=== PATIENT | female | born 1950 | race Hispanic/Latino ===

== ENCOUNTER 2016-09-13 11:38 | Inpatient (IN) | payer MEDICARE, OTHER ==
--- NOTE | 2016-09-13 12:19 | ED PDOC ---
Arrival/HPI - General Chief Complaint: Altered Mental Status Time Seen by Provider: 09/13/16 12:03 Historian: Patient, Family - History of Present Illness Narrative History of Present Illness (Text): 09/13/16 12:32 Patient is a 66 yo female past medical history of diabetes, past medical history of bladder and squamous cell cancer, presents to ED after family found her this morning to be confused and altered. As per daughter, when she went to check on her prior to arrival she was not responding and very confused. Reportedly she had been in her normal state yesterday aside from "being a little weak in the morning". No history of fevers, chest pain or shortness of breath. She has some chronic hip pain where she reportedly has metastatic disease. She is uncertain whether she took her insulin this morning or whether she ate today. Reportedly, patient was found with low blood sugar this AM and dextrose was given with improvement in symptoms. Time/Duration: Prior to Arrival Symptom Onset: Gradual Past Medical History - Infectious Disease Hx of Infectious Diseases: None - Reproductive Menopause: Yes - Cardiac Hx Pacemaker: No - Pulmonary Hx Respiratory Disorders: Yes - Neurological Hx Paralysis: No - HEENT Hx HEENT Disorder: No - Renal Hx Renal Disorder: No - Endocrine/Metabolic Hx Endocrine Disorders: Yes Hx Diabetes Mellitus Type 2: Yes - Hematological/Oncological Hx Blood Transfusions: No - Integumentary Hx Dermatological Disorder: No - Musculoskeletal/Rheumatological Hx Musculoskeletal Disorders: Yes - Gastrointestinal Hx Gastrointestinal Disorders: No - Genitourinary/Gynecological Hx Genitourinary Disorders: Yes Other/Comment: bladder cancer on chemo goes to [place] - Psychiatric Hx Substance Use: No - Anesthesia Hx Anesthesia Reactions: Yes (SEVERE NAUSEA/VOMITING) Hx Malignant Hyperthermia: No - Suicidal Assessment Feels Threatened In Home Enviroment: No Family/Social History Family/Social History: Unknown Family HX Smoking Status: Never Smoked Hx Alcohol Use: No Hx Substance Use: No Allergies/Home Meds Allergies/Adverse Reactions: Allergies No Known Allergies Allergy (Verified 02/23/15 15:55) Home Medications: Home Meds Medication Instructions Recorded Confirmed Cholecalciferol (Vitamin D3) 1,000 iu PO DAILY 02/21/15 09/13/16 [Vitamin D] Gabapentin [Neurontin] 400 mg PO TID 02/21/15 09/13/16 Multivit,Calc,Mins/Iron/Folic 1 tab PO DAILY 02/21/15 09/13/16 [One-A-Day Women's] Aspirin [Ecotrin] 81 mg PO DAILY 05/15/16 09/13/16 Cyanocobalamin [Vitamin B12 100 100 mcg PO DAILY 05/15/16 09/13/16 mcg Tab] Enoxaparin [Lovenox] 60 mg SQ DAILY 05/15/16 09/13/16 Lidocaine 5% [Lidocaine] 1 patch TP 2XW 05/15/16 09/13/16 fentaNYL 12 mcg/hr [Duragesic 1 patch TD Q72H 05/15/16 09/13/16 Patch 12 mcg/hr] oxyCODONE [oxyCODONE Immediate 5 mg PO TID 05/15/16 09/13/16 Release Tab] Insulin Aspart, Recombinant 25 unit SC ACBD 05/16/16 09/13/16 [Novolog] Ondansetron HCl [Zofran] 8 mg PO DAILY 09/13/16 09/13/16 Pantoprazole [Protonix EC Tab] 20 mg PO DAILY 09/13/16 09/13/16 Pravastatin Sodium [Pravachol] 10 mg PO DAILY 09/13/16 09/13/16 Review of Systems - Review of Systems Constitutional: Fatigue. absent: Fevers Eyes: absent: Vision Changes ENT: absent: Hearing Changes Respiratory: absent: SOB Cardiovascular: absent: Chest Pain Gastrointestinal: absent: Abdominal Pain Genitourinary Female: Urine Output Changes Musculoskeletal: Arthralgias Skin: absent: Rash Neurological: absent: Headache, Dizziness Psychiatric: absent: Depression Physical Exam Vital Signs Reviewed: Yes Vital Signs Temp Pulse Resp BP Pulse Ox 09/13/16 16:30 100 F H 97 H 13 147/76 98 09/13/16 16:25 97 H 16 161/71 H 98 09/13/16 11:45 98 F 93 H 16 164/57 H 100 Temperature: Afebrile Appearance: Positive for: Uncomfortable Pain Distress: Moderate Mental Status: Positive for: Alert and Oriented X 3 - Systems Exam Head: Present: Atraumatic Pupils: Present: PERRL Mouth: Present: Moist Mucous Membranes Nose (Internal): Present: Normal Inspection Neck: Present: Normal Range of Motion. No: Meningeal Signs Respiratory/Chest: Present: Clear to Auscultation Cardiovascular: Present: Regular Rate and Rhythm, Murmurs Abdomen: Present: Ostomy Tubes Back: Present: Paraspinal Tenderness Upper Extremity: No: Cyanosis Lower Extremity: Present: Neurovascularly Intact, Other (tenderness to left hip worse with ROM, intact distal pulses). No: Edema Neurological: Present: Motor Func Grossly Intact, Normal Sensory Function Skin: Present: Pale Psychiatric: Present: Alert Medical Decision Making ED Course and Treatment: Patient's history reviewed with daughters at bedside. Patient reportedly was found to have low blood sugar prior to arrival after being found confused and altered by family member earlier this AM, who called her daughter, who states that she went to see mother and she was very confused approximately 1100 am. Reportedly she had episode but not as severe yesterday morning but she felt better "after eating and taking her insulin". Daughter states that throughout the day yesterday "she was fine". Patient reportedly had immediate improvement in mental status after receiving D50. On my initial examination she is awake, alert, no slurred speech, no confusion. Based on immediate response to D50 after reported hypoglycemia, patient's symptoms I feel were due to hypoglyecemic episode, less likely tia/cva as immediate response to D50 and intact serial neuro exams. She has a severe pain to her hip that she states she had for several months after recent diagnosis of "metastatic disease to her bone". She states this pain is not changed in character. She requests to take her own pain medication. Patient states that she does not want iv pain meds intially. She has no relief of pain after taking her pain medication. With daughter's present, I discussed with her risks/side effects of Morphine, she is agreeable to Morphine 2 mg iv dose, which she tolerated with some improvement in her pain. She has no abdominal pain with serial exams. Ostomy without bloody drainage. Chest X-ray Retail Service Specialist : James Nam MD Report Date : 09/13/2016 12:28:24 IMPRESSION: No infiltrate. Possible right pulmonary nodule. Consider further nonemergent CT examination of the chest. No respiratory distress noted. UTI noted, patient with no upper back pain or cva tenderness, afebrile. UTI reviewed with patient, will initiate IV antibiotics. Patient reportedly had blood transfusion earlier this week. Hgb reviewed with family, this reportedly has been her baseline. She is not hypotensive or tachycardic in ED. Labs and imaging studies reviewed with patient. She described an episode yesterday where she felt dizzy, weak, "like she might pass out" but resolved after eating and insulin. She will be admitted for further evaluation of hypoglycemic episodes as well as serial neuro exams, monitoring of her symptoms. Hip pain appears chronic and palpable. If persistent recommend further evaluation and reassessment, thus admission. Case d/w PMD Dr. Yasmine Johnson. - Lab Interpretations Lab Results: 09/13/16 12:55 09/13/16 12:55 Lab Results 09/13/16 15:37: POC Glucose (mg/dL) 248 H 09/13/16 12:55: Sodium 133, Potassium 4.3, Chloride 99, Carbon Dioxide 28, Anion Gap 10, BUN 18, Creatinine 0.9, Est GFR ( Amer) > 60, Est GFR (Non- Af Amer) > 60, Random Glucose 101, Calcium 9.4, Total Bilirubin 0.5, AST 17, ALT 30, Alkaline Phosphatase 73, Lactate Dehydrogenase 452, Total Creatine Kinase < 20 L, Troponin I < 0.01, Total Protein 6.1, Albumin 3.3, Globulin 2.8, Albumin/Globulin Ratio 1.2 09/13/16 12:55: Urine Color Yellow, Urine Appearance Cloudy, Urine pH 6.5, Ur Specific [place] 1.020, Urine Protein 30 H, Urine Glucose (UA) Negative, Urine Ketones Negative, Urine Blood Large H, Urine Nitrate Positive H, Urine Bilirubin Negative, Urine Urobilinogen 0.2, Ur Leukocyte Esterase Large H, Urine RBC 1 - 3, Urine WBC Tntc, Ur Epithelial Cells 0 - 2, Urine Bacteria Large 09/13/16 12:55: PT 11.4, INR 1.06, APTT 34.5 H 09/13/16 12:55: WBC 5.4 D, RBC 4.07, Hgb 10.8 L, Hct 33.2 L, MCV 81.6, MCH 26.5 , MCHC 32.5, RDW 18.2 H, Plt Count 265, MPV 9.1, Gran % 76.5 H, Lymph % (Auto) 11.2 L, [place] % (Auto) 11.4 H, Eos % (Auto) 0.7 L, Baso % (Auto) 0.2, Gran # 4.11 , Lymph # 0.6 L, [place] # 0.6, Eos # 0.0, Baso # 0.01 I have reviewed the lab results: Yes - RAD Interpretation Radiology Orders: 09/13/16 12:04 CHEST PORTABLE [RAD] Stat - Medication Orders Current Medication Orders: Aspirin (Ecotrin) 81 mg PO DAILY [facility] Cholecalciferol (Vitamin D) 1,000 iu PO DAILY [facility] Enoxaparin Sodium (Lovenox) 60 mg SC BID [facility] PRN Reason: Protocol Last Admin: 09/13/16 18:30 Dose: Fentanyl (Duragesic) 1 patch TD Q72H [facility] Last Admin: 09/13/16 18:29 Dose: 12 patch Gabapentin (Neurontin) 400 mg PO TID [facility] PRN Reason: Protocol Last Admin: 09/13/16 20:05 Dose: Dextrose/Sodium Chloride (Dextrose 5%/0.45% Ns 1000 Ml) 1,000 mls @ 80 mls/hr IV .[id number] [facility] Last Admin: 09/13/16 13:07 Dose: 80 mls/hr Ceftriaxone Sodium (Rocephin 1 Gram Ivpb) 1 gm in 100 mls @ 100 mls/hr IVPB DAILY [facility] PRN Reason: Protocol Insulin Human Regular (Humulin R Med) 0 units SC ACHS [facility] PRN Reason: Protocol Last Admin: 09/13/16 21:33 Dose: Not Given Non-Admin Reason: Blood Sugar Parameter Morphine Sulfate (Morphine) 4 mg IVP Q4H PRN PRN Reason: Pain, moderate (4-7) Last Admin: 09/13/16 20:05 Dose: 4 mg Discontinued Medications Ceftriaxone Sodium (Rocephin 1 Gram Ivpb) 1 gm in 100 mls @ 200 mls/hr IVPB ONCE STA PRN Reason: Protocol Stop: 09/13/16 16:35 Last Admin: 09/13/16 16:26 Dose: 200 mls/hr Morphine Sulfate (Morphine) 2 mg IVP STAT STA Stop: 09/13/16 16:07 Last Admin: 09/13/16 16:25 Dose: 2 mg Re-Assess: MIKA Pain Assessment Document 09/13/16 17:25 SRE (Rec: 09/13/16 17:36 SRE [id number]) Pain Reassessment Is this a pain reassessment? Yes Sleep Is patient sleeping during reassessment? No Presence of Pain Presence of Pain Yes Pain Scale Used Pain Scale Used Numeric Location Pain Location Body Site Back Disposition/Present on Arrival - Present on Arrival Any Indicators Present on Arrival: No History of DVT/PE: No History of Uncontrolled Diabetes: No Urinary Catheter: No History of Decub. Ulcer: No History Surgical Site Infection Following: None - Disposition Have Diagnosis and Disposition been Completed?: Yes Diagnosis: Hypoglycemia, Altered mental status, Anemia, Lung nodule, Urinary tract infection Disposition: HOSPITALIZED Disposition Time: 15:35 Patient Plan: Admission, Telemetry Patient Problems: Current Active Problems Problem Status Onset Altered mental status Acute Anemia Acute Hypoglycemia Acute Lung nodule Acute Urinary tract infection Acute Condition: FAIR
--- NOTE | 2016-09-13 12:30 | RAD ---
HISTORY: weakness COMPARISON: No prior. FINDINGS: LUNGS: No infiltrate. 9 mm nodular density overlying anterior end of right 5th rib. Consider further evaluation with computed tomography of the chest. PLEURA: No significant pleural effusion identified, no pneumothorax apparent. CARDIOVASCULAR: Normal heart size. No congestive change. Right central venous infusion port. OSSEOUS STRUCTURES: No significant abnormalities. VISUALIZED UPPER ABDOMEN: Normal. OTHER FINDINGS: None. IMPRESSION: No infiltrate. Possible right pulmonary nodule. Consider further nonemergent CT examination of the chest.
[2016-09-13 12:57] LABS: ADD MANUAL DIFF? NO
[2016-09-13 13:00] LABS: BASO # 0.01 K/mm3 (0.0-2.0); BASO % 0.2 % (0.0-3.0); EOS % 0.7 % (1.5-5.0); GRAN # 4.11 (1.4-6.5); GRAN % 76.5 % (50.0-68.0); HEMATOCRIT 33.2 % (36.0-48.0); LYMPH # 0.6 (1.2-3.4); LYMPH % 11.2 % (22.0-35.0); MEAN CELL VOLUME 81.6 fL (80.0-105.0); MEAN CORPUSCULAR HEMOGLOBIN 26.5 pg (25.0-35.0); MEAN CORPUSCULAR HGB CONC 32.5 g/dl (31.0-37.0); MEAN PLATELET VOLUME 9.1 fl (7.0-11.0); MONO # 0.6 (0.1-0.6); MONO % 11.4 % (1.0-6.0); PH,URINE 6.5 (4.7-8.0); PLATELET COUNT 265 10^3/uL (120.0-450.0); RED CELL DISTRIBUTION WIDTH 18.2 % (11.5-14.5); URINE BILIRUBIN NEGATIVE (NEGATIVE); URINE BLOOD LARGE (NEGATIVE); URINE GLUCOSE (UA) NEGATIVE (NEGATIVE); URINE KETONE NEGATIVE (NEGATIVE); URINE LEUKOCYTE ESTERASE LARGE Leu/uL (NEGATIVE); URINE PROTEIN 30 mg/dL (<30 mg/dL); URINE UROBILINOGEN 0.2 E.U./dL (<1 E.U./dL); WHITE BLOOD COUNT 5.4 10^3/ul (4.5-11.0)
[2016-09-13 13:02] LABS: URINE APPEARANCE CLOUDY (CLEAR); URINE COLOR YELLOW (YELLOW)
[2016-09-13] MEDS: Dextrose 5%/0.45% NS 1,000 ML IV SCH (13:07)
[2016-09-13 13:10] LABS: ALB/GLOB RATIO 1.2 (1.1-1.8); ALKALINE PHOSPHATASE 73 U/L (38-133); ALT/SGPT 30 U/L (7-56); AST/SGOT 17 U/L (15-39); BILIRUBIN,TOTAL 0.5 mg/dL (0.2-1.3); BLOOD UREA NITROGEN 18 mg/dL (7-21); CALCIUM 9.4 mg/dL (8.4-10.5); CARBON DIOXIDE 28 mmol/L (21-33); CHLORIDE 99 mmol/L (98-107); GFR AFRICAN-AMERICAN > 60; GLUCOSE,RANDOM 101 mg/dL (70-110); POTASSIUM 4.3 mmol/L (3.6-5.0); SODIUM 133 mmol/L (132-148); TOTAL PROTEIN 6.1 g/dL (5.8-8.3)
[2016-09-13 13:22] LABS: INR 1.06 (0.93-1.08); PARTIAL THROMBOPLASTIN TIME 34.5 Seconds (23.7-30.8)
[2016-09-13 13:27] LABS: TROPONIN I < 0.01 ng/mL
[2016-09-13 13:41] LABS: URINE BACTERIA LARGE (NEG); URINE EPITHELIAL CELLS 0 - 2 /hpf (0-5); URINE WBC TNTC /hpf (0-6)
[2016-09-13] MEDS ORDERED: cefTRIAXone 1 gm 1 GM/100 ML BAG IVPB STA (16:06)
[2016-09-13] MEDS ORDERED: Morphine 2 mg/ml ISec IVP STA (16:06)
[2016-09-13] MEDS: Enoxaparin 60 mg Syringe SC SCH (18:30)
[2016-09-13] MEDS: Morphine 4 mg/ml ISec IVP PRN (20:05)
--- NOTE | 2016-09-13 20:40 | HP ---
HISTORY OF PRESENT ILLNESS: I was called down to the [facility] for this patient who had a near syncopal episode with low blood sugar. The blood sugar was as low as 50 I understand. They gave her some dextrose and she got a little bit better. She was found confused and altered by the da ughter this morning and when she got some sugar she did better. No fevers or chest pain or shortness of breath. She has chronic hip pain from metastatic disease from her past medical history of bladde r and squamous cell cancer. She is in menopause. She has type 2 diabetes. She has hip pains from m etastasis to the bone. She has some nauseousness. SOCIAL HISTORY: No smoker, no alcohol, no drugs. ALLERGIES: No known drug allergies. MEDICATIONS: She takes vitamin D, Neurontin, vitamins, Ecotrin, vitamin B12, Lovenox, Lidoderm, lido josee patch, Diovan, Duragesic, oxycodone and Novolin insulin. REVIEW OF SYSTEMS: At this time she is pleasant. She is awake, alert. She understands what is jadyn g on, a little bit tired. No change in vision or change in hearing. No headache, no dizziness, no c hest pain or palpitations. No shortness of breath, coughing, wheezing or congestion. No nausea or v omiting at this time. No constipation, diarrhea. Urine changes from the cancer, multiple arthralgia s, especially of the left hip secondary to metastasis, no rashes on skin. Her skin is intact. No he adache or dizziness, no depression or anxiety, comfortable. PHYSICAL EXAMINATION: VITAL SIGNS: She has a 100 temperature, 97 pulse, 147/76 blood pressure, 13 respiratory rate, 98% O2 sat on room air. HEENT: Head is atraumatic, normocephalic. Extraocular muscles are intact. Throat is moist, no eryt kaleigh. NECK: Supple, no JVD. HEART: Regular rate. LUNGS: Decreased breath sounds but clear to auscultation. ABDOMEN: Has an ostomy tubes, positive bowel sounds. EXTREMITIES: No edema of the lower extremities, pain to the left hip from metastasis. NEUROLOGIC: She is alert and comfortable at this time. Thyroid midline. No palpable lymphadenopath y. Chest x-ray showed no infiltrate, possible right pulmonary nodule. She might need a CAT scan for irish t. LABORATORY DATA: She had lab tests done. The urine is positive with large blood, large leukocyte, l arge bacteria, 133 sodium, potassium 4.3, BUN 18, creatinine 0.9, GFR is greater than 60, sugar is 24 8 and 101. Calcium is 9.4, total bili is 0.5, AST is 17, ALT is 30, alkaline phosphatase 73, lactic dehydrogenase is 452, troponin I is less than 0.01, total protein 6.1, albumin 3.3, globulin 2.8. IN R is 1.06. White count is 5.4, hemoglobin 10.8, hematocrit 33.2, platelets are 265. PLAN: She will have a consult with neurology for near syncope. Will also consult endocrinology for her low blood sugars in order to adjust her insulin. I will put her on insulin coverage. She will h ave Rocephin for UTI. She has a pulmonary nodule. I will order a CAT scan of her chest. She will h ave physical therapy. Hopefully, will have her pain medications and she will do well. Also, physica l therapy. Hopefully, will adjust the meds well, treat the urinary tract infection. The patient was in acute distress with near syncope, low blood sugars, and urinary tract infection. Hussein Johnson DO cc: [id number] TT: 09/13/2016 20:38:53 jn
[2016-09-13 20:48] VITALS: BMI 27.4
--- NOTE | 2016-09-13 20:52 | CON ---
DATE: 09/13/2016 HISTORY OF PRESENT ILLNESS: This is a 66-year-old female with past medical history of diabetes and b ladder cancer. The patient came to the Emergency Room with the complaint of confusion and altered me ntal status. As per daughter, they went to check her and she was very confused. Blood sugar was in the 50s and because the patient had not eaten anything since 3:00 yesterday. The patient also has a chronic hip pain secondary to metastatic disease to the pelvis and there is a mass in the pelvic area for which she has been taking radiations in [facility]. PAST MEDICAL HISTORY: Bladder cancer, diabetes type 2, arthritis. HOME MEDICATIONS: The patient is on gabapentin, aspirin, B12, Diovan, Lovenox and oxycodone and insu price. REVIEW OF SYSTEMS: A 10-point review of system was negative except pain in the left hip and getting confused because of hypoglycemia. A 10-point review of system was negative except confusion and left hip pain. PHYSICAL EXAMINATION: HEENT: Normocephalic, atraumatic. NECK: Supple. NEUROLOGIC: Awake, oriented to self. Cranial nerves II through XII were tested. Pupils reactive. EOM intact. Visual hennessy full. No facial asymmetry. Tongue midline. Motor examination: Spontane ous movement of all the extremities noted except left lower extremity weakness secondary to pelvic ma ss. Cerebellar, gait was deferred. IMPRESSION: Encephalopathy possibly toxic metabolic, hypoglycemia and workup in progress, possibly u rinary tract infection also. PLAN: Continue present management. Will follow up. We will do the CAT scan of the head without con trast. Shiv Ramos MD cc: [id number] TT: 09/13/2016 20:50:57 Confirmation # [id number] Dictation # [id number]
[2016-09-13] MEDS ORDERED: Insulin Reg-MEDIUM-Coverage SC SCH (22:00)
[2016-09-14] MEDS: Dextrose 5%/0.45% NS 1,000 ML IV SCH
[2016-09-14] MEDS: Morphine 4 mg/ml ISec IVP PRN ×6 (01:03→23:20)
[2016-09-14 06:54] LABS: ALKALINE PHOSPHATASE 60 U/L (38-133); ALT/SGPT 29 U/L (7-56); AST/SGOT 21 U/L (15-39); BILIRUBIN,TOTAL 0.6 mg/dL (0.2-1.3); BLOOD UREA NITROGEN 17 mg/dL (7-21); CALCIUM 8.5 mg/dL (8.4-10.5); CARBON DIOXIDE 27 mmol/L (21-33); CHLORIDE 98 mmol/L (98-107); GFR AFRICAN-AMERICAN > 60; GLUCOSE,RANDOM 205 mg/dL (70-110); POTASSIUM 4.3 mmol/L (3.6-5.0); SODIUM 131 mmol/L (132-148); TOTAL PROTEIN 5.2 g/dL (5.8-8.3)
[2016-09-14 07:10] LABS: HEMATOCRIT 29.8 % (36.0-48.0); MEAN CELL VOLUME 82.8 fL (80.0-105.0); MEAN CORPUSCULAR HEMOGLOBIN 26.4 pg (25.0-35.0); MEAN CORPUSCULAR HGB CONC 31.9 g/dl (31.0-37.0); MEAN PLATELET VOLUME 8.7 fl (7.0-11.0); RED CELL DISTRIBUTION WIDTH 18.4 % (11.5-14.5); WHITE BLOOD COUNT 5.8 10^3/ul (4.5-11.0)
[2016-09-14] MEDS: Insulin Lispro (humaLOG) LOW Coverage SC SCH ×4 (07:35→21:24)
[2016-09-14] MEDS: Insulin Lispro 1 UNITS/0.01 ML SC SCH ×3 (08:00→17:08)
--- NOTE | 2016-09-14 08:50 | CON ---
DATE: 09/13/2016 ROOM: 360 HISTORY OF PRESENT ILLNESS: This is a 66-year-old female with known history of type 2 insulin-requir ing diabetes presenting here with altered mental status related to symptomatic hypoglycemia and is no w being referred for diabetic evaluation and management. A family member found her to have sudden on set of confusion and disorientation with generalized body weakness and supervening hypoglycemic range levels as noted thereof. PAST MEDICAL HISTORY: As mentioned above, history of type 2 insulin-requiring diabetes on a combinat ion of NovoLog given as 25 units before breakfast and before dinner as noted. She also was previousl y on Levemir, but currently has been off basal insulin at this time. As mentioned above, history of metastatic cancer with apparent bladder and squamous cell carcinoma, the details of yet to be clarifi ed and verified at this time. History of hypertensive cardiovascular disease and dyslipidemia. She is currently on chemotherapy at [facility] for bladder carcinoma. FAMILY HISTORY: Positive for hypertension and diabetes. SOCIAL HISTORY: The patient has supportive family. No known substance use. REVIEW OF SYSTEMS: As mentioned above, admits to generalized body weakness with easy fatigability an d tiredness and suboptimal energy level. Also admits to progressive dizziness and lightheadedness, w orse on the day of admission with supervening confusion, disorientation and increase in hypersomnolen ce as noted. No chest pains or palpitations or PNDs. Her oral intake has been variable and suboptim al with nausea, dyspepsia and episodic vomiting episodes, especially postchemotherapy. No recent alt erations of bowel or urinary patterns. PHYSICAL EXAMINATION: GENERAL: This is an asthenic female in no apparent distress. VITAL SIGNS: Blood pressure of 160/90, pulse of 70 beats per minute and regular, temperature 98, res pirations 20. Height is 4 feet 11 and weight is 136 pounds. HEENT: Head normocephalic. Eyes anicteric with pink conjunctivae. Fundoscopy not possible at this time. Ears, nose and throat otherwise normal. NECK: Supple. Thyroid gland is normal size. No carotid bruits. No cervical adenopathy. CARDIOPULMONARY: Some adynamic precordium. S1, S2 is rapid and regular. LUNGS: Clear to auscultation. ABDOMEN: Flat, soft with positive bowel sounds. EXTREMITIES: No peripheral edema. Pulses are +2 bilaterally. LABORATORY DATA: Initial chemistries showed a BUN of 18, sodium 133, potassium 4.3, chloride 99, CO2 28, glucose 101 and creatinine 0.9. ASSESSMENT: This is a 66-year-old female with metastatic bladder carcinoma presenting here with symp tomatic hypoglycemia and associated neuroglycopenic and hyperadrenergic manifestations of the same, m ost likely related to over insulinization with concomitant variable and suboptimal meal portions as n oted thereof with ongoing and continued insulin therapy as noted. PLAN OF MANAGEMENT: As discussed with the patient and the staff, we will modify her coverage scale t o a very low dose algorithm using Humalog insulin as given. We will observe her glycemic fluctuation s and determine the need to restart her on a very low dose basal and bolus insulin regimen as indicat ed. We will obtain a hemoglobin A1c to confirm prior glycemic control and baseline thyroid function studies will be ordered. We will also obtain serial chemistries and supplement accordingly as needed . We will continue the dextrose infusion as ordered and adjust accordingly depending on the serial g lucose values and serial chemistries accordingly. We will follow. Carol Meléndez MD cc: [id number] TT: 09/14/2016 08:50:45 Confirmation # [id number] Dictation # [id number] tn
--- NOTE | 2016-09-14 09:43 | CARD ---
APPROVED REPORT EKG Measurement Heart [id number] OR 130P-25 [id number] <Conclusion> Normal sinus rhythm Inferior infarct, age undetermined Electrical artifact present
[2016-09-14] MEDS: Enoxaparin 60 mg Syringe SC SCH ×2 (09:47→17:08)
[2016-09-14] MEDS: cefTRIAXone 1 gm 1 GM/100 ML BAG IVPB SCH (09:48)
[2016-09-14] MEDS ORDERED: Levothyroxine 25 MCG TAB PO SCH (10:00)
[2016-09-14] MEDS: Sodium Chloride 0.9% 1,000 ML IV SCH (10:11)
--- NOTE | 2016-09-14 10:48 | PN ---
DATE: 09/14/2016 I saw her resting comfortably in bed this morning. She is still not feeling that great, but maybe a little bit better than in the Emergency Room. She is here for near syncope, low blood sugars, possib le pulmonary nodule and urinary tract infection. MEDICATIONS: She is currently on Duragesic patch, Ecotrin, Humalog, Lovenox, morphine, Neurontin, Ro cephin, IV fluids, Synthroid and vitamin D. PHYSICAL EXAMINATION: VITAL SIGNS: 99.3 temp, 96 pulse, 135/71 blood pressure, 18 respiratory rate, 98% O2 sat on room air . She also has bladder cancer that she is being treated for. HEENT: Head is atraumatic, normocephalic. Her throat is moist. GENERAL: She is alert and talking to me, uncomfortable, in pain, getting her pain meds. HEART: Regular rate. LUNGS: Decreased breath sounds bilaterally, but clear. ABDOMEN: Soft, mildly obese, positive bowel sounds. EXTREMITIES: Trace edema. LABORATORY DATA: Her white count is 5.8, hemoglobin 9.5, a little bit lower than yesterday, could be the IV fluids, 29.8 hematocrit with 250 platelets, 1.06 INR. Sodium is down to 131 and the blood tolbert gars are up to 205 and 248. I will change her dextrose D5 and a half to 0.9, see if we can correct t he sodium and decrease the sugar. BUN is 17, creatinine 0.9, GFR is greater than 60, calcium is 8.5. Total bili is 0.6. AST is 21, ALT is 29, alk phos is 60. Troponin was less than 0.01, total prote in is 5.2, albumin is 2.7. TSH is 8.46. She has never been hypothyroid, but her daughters are hypot hyroid. Now, she is hypothyroid. I will put her on Synthroid 0.025 to start and see how she does. Also, she has a urinary tract infection with large bacteria, large leukocytes, large blood. She had a chest x-ray that said possible pulmonary nodule. We will order a CAT scan of the chest that they a re recommending. She is being seen by endocrinology and neurology for the near syncope and low blood sugar. It could all be related to the blood sugar. We need to adjust her insulin and her medications which we are do ing. We are treating her urinary tract infection and her hypothyroidism and she should get physical therapy, try and get out of bed to chair if possible. Hussein Johnson DO cc: [id number] TT: 09/14/2016 10:48:03 Confirmation # [id number] Dictation # [id number] tn
--- NOTE | 2016-09-14 11:39 | CT ---
PROCEDURE: CT HEAD WITHOUT CONTRAST. HISTORY: near syncope COMPARISON: None available. TECHNIQUE: Axial computed tomography images were obtained through the head/brain without intravenous contrast. Radiation dose: Total exam DLP = 677.45 mGy-cm. This CT exam was performed using one or more of the following dose reduction techniques: Automated exposure control, adjustment of the mA and/or kV according to patient size, and/or use of iterative reconstruction technique. FINDINGS: HEMORRHAGE: No intracranial hemorrhage. BRAIN: No mass effect or edema. Patchy and confluent hypodensities throughout the bilateral cerebral hemispheric white matter are most likely from chronic small vessel ischemic changes. Hypodensity in the right caudate head and the surrounding white matter could be age-indeterminate ischemic injury. VENTRICLES: Unremarkable. No hydrocephalus. CALVARIUM: Unremarkable. PARANASAL SINUSES: Unremarkable as visualized. No significant inflammatory changes. MASTOID AIR CELLS: Unremarkable as visualized. No inflammatory changes. OTHER FINDINGS: None. IMPRESSION: No CT evidence of acute intracranial hemorrhage or acute territorial infarct. Acute infarction may be CT occult within first 24 hours. If a focal deficit persists, consider followup CT or MRI for further evaluation. Hypodensity in the right caudate head in the surrounding white matter the age-indeterminate ischemic injury. White matter is small vessel ischemic changes. Followup imaging can be obtained as per clinical indications.
--- NOTE | 2016-09-14 12:30 | CT ---
PROCEDURE: CT Chest without contrast HISTORY: Pulmonary nodule. COMPARISON: Chest CT from 03/04/2015. Chest radiograph from 09/13/2016. TECHNIQUE: Contiguous axial images were obtained through the chest without intravenous contrast enhancement. Sagittal and coronal reconstructions were performed. Radiation dose (DLP): 265.85 mGy-cm. This CT exam was performed using one or more of the following dose reduction techniques: Automated exposure control, adjustment of the mA and/or kV according to patient size, and/or use of iterative reconstruction technique. FINDINGS: LUNGS: No focal airspace opacity. 1 millimeter nodule in the peripheral aspect of the left upper lobe (image 36, series 4 this is likely an impacted small airway. 5 millimeter nodule in the right middle lobe (image 59 in lung windows). MEDIASTINUM: The heart is not enlarged. There is no significant pericardial effusion. Coronary artery calcifications. Right upper chest medication port with the distal tip of the catheter in the cavoatrial junction. No significant mediastinal lymphadenopathy. Hilar lymphadenopathy suboptimally seen given lack of IV contrast. PLEURA: No pleural fluid. No pneumothorax. BONES: Degenerative changes of both shoulders. UPPER ABDOMEN: Partially visualized right-sided mild to moderate hydronephrosis. 6 millimeter hypodensity in the junction of the right and left hepatic lobes (image 82, series 2). This is indeterminate in etiology. Small hiatal hernia. Collapsed stomach limiting evaluation. Punctate calcification both breasts. Correlation with mammography recommended. OTHER FINDINGS: None. IMPRESSION: No focal airspace opacity. 5 millimeter nodule in the right middle lobe (image 59 in lung windows). 3-6 month follow-up CT should be obtained. 6 millimeter hypodensity in the junction of the right and left hepatic lobes, indeterminate. Punctate calcifications in both breasts. Correlation with mammography recommended.
--- NOTE | 2016-09-14 12:39 | PN ---
DATE: 09/14/2016 CHIEF COMPLAINT: Follow up for change in mental status. SUBJECTIVE: The patient seen and examined at bedside. She is doing much better today. Her blood tolbert gars are more stabilized. Endocrinology's consult has been appreciated. They have adjusted her medi cations. Discussed with daughter at bedside who mentioned that her mother has not been taking her me dications at the correct times as well. She is currently being treated for underlying urinary tract infection. CT head showed no acute intracranial abnormalities, just chronic ischemic changes in old right head of the caudate, possibly lacunar infarct. REVIEW OF SYSTEMS: A 14-point review of systems is negative except for the HPI. FAMILY HISTORY: Noncontributory. SOCIAL HISTORY: No illicit drug use, smoking, or ETOH abuse. PAST MEDICAL HISTORY: Type 2 diabetes mellitus, history of bladder squamous cell carcinoma which she is getting treatment of chemotherapy ____ for bladder cancer, dyslipidemia, hypertension. FAMILY HISTORY: Positive for hypertension and diabetes. SOCIAL HISTORY: No illicit drug use, smoking, or ETOH abuse. REVIEW OF SYSTEMS: 14 point review of systems negative except for in the HPI. PHYSICAL EXAMINATION: VITAL SIGNS: Temperature 99.3, pulse rate of 96, blood pressure 135/71, respiratory rate of 18, oxyg en 98% on room air. GENERAL: The patient is sitting up in the bed, in no acute distress. HEENT: Atraumatic, normocephalic. PERRLA. Extraocular muscles intact. NECK: Supple, no JVD, no adenopathy noted. LUNGS: Clear to auscultation. No adventitious sounds. HEART: S1, S2, normal rate and rhythm. No murmurs, rubs, or gallops. ABDOMEN: Soft, nontender, nondistended. Bowel sounds are present. EXTREMITIES: No clubbing, no cyanosis. Peripheral pulses 2+ felt bilaterally. NEUROLOGIC: The patient is alert, oriented to person, place and year. Poor attention span, slow tho ught process. Speech is fluent, without any errors. Cranial nerves II-XII are intact. MOTOR: Moves all extremities equally except slight increased tone throughout. Spontaneous movement in all extremities except for left lower extremity weakness secondary to pelvic mass. COORDINATION: Uknksl-mh-xall intact. GAIT: Deferred for now. Toes are downgoing bilaterally. LABORATORIES: Sodium is 131, potassium 4.3, chloride 98, carbon dioxide 27, BUN of 17, creatinine 0. 9, random glucose 205. ASSESSMENT AND PLAN: This is a 66-year-old woman with history of type 2 diabetes mellitus, history o f metastatic bladder cancer who presented with altered mental status, found to be symptomatic hypogly cemic along with neuroglycopenia and hyper adrenergic manifestations likely related to her insulin us e. She also has urinary tract infection which indicated possibly a mild component of toxic metabolic encephalopathy. Her mental status is much more improved. AT THIS TIME, RECOMMEND: 1. Keep her blood sugars between 140-180 and follow endocrinology's recommendations in regards to he r diabetes. 2. Continue with aspirin 81 mg for stroke prevention. 3. Gabapentin 400 mg p.o. t.i.d. for neuropathic pain. 4. Physical therapy and out of bed to chair. Please reconsult if necessary. Taye Ramos MD cc: [id number] TT: 09/14/2016 12:39:03 Confirmation # [id number] Dictation # [id number] jn
--- NOTE | 2016-09-14 18:38 | PN ---
DATE: 09/14/2016 ROOM: 360 SUBJECTIVE: This is a 66-year-old female with recent uncontrolled type 2 insulin-requiring diabetes, presenting initially with symptomatic hypoglycemia and associated neuroglycopenia and hyperadrenergi c manifestations of the same. She has since then improved clinically and metabolically as noted. He r oral intake remains variable as per the nursing staff. Her glycemic fluctuations of been observed as noted over the past day or so while inpatient. Her latest chemistries showed a BUN of 17, sodium 131, potassium 4.3, chloride 98, CO2 27, glucose 205 and creatinine 0.9. Her glucose levels have ran ged from 129 to 216 mg/dL. Her TSH level has been reported as 8.46. So at this time, we will modify her current insulin regimen and switch her over to a more physiologic insulin drug combination with Levemir given as 6 units subQ at bedtime daily to start tonight. We will also continue the Humalog g iven as 4 units subQ t.i.d. before meals as ordered. We will continue the low-dose correction scale using Humalog insulin as ordered. We will titrate her levothyroxine to higher dose of 50 mcg once da deyvi before breakfast as ordered. We will obtain serial chemistries and supplement accordingly as negwyn ded. We will follow. Carol Meléndez MD cc: [id number] TT: 09/14/2016 18:37:47 Confirmation # [id number] Dictation # [id number] los
[2016-09-14] MEDS: Insulin Detemir 100 units/ml Vial (Levemir) SC SCH (21:22)
[2016-09-15] MEDS: Sodium Chloride 0.9% 1,000 ML IV SCH (05:38)
[2016-09-15] MEDS: Morphine 4 mg/ml ISec IVP PRN ×4 (05:39→18:28)
[2016-09-15] MEDS: Insulin Lispro (humaLOG) LOW Coverage SC SCH ×4 (07:42→22:31)
[2016-09-15 07:48] LABS: HEMATOCRIT 29.4 % (36.0-48.0); MEAN CELL VOLUME 83.1 fL (80.0-105.0); MEAN CORPUSCULAR HEMOGLOBIN 26.3 pg (25.0-35.0); MEAN CORPUSCULAR HGB CONC 31.6 g/dl (31.0-37.0); MEAN PLATELET VOLUME 8.8 fl (7.0-11.0); RED CELL DISTRIBUTION WIDTH 18.2 % (11.5-14.5); WHITE BLOOD COUNT 6.2 10^3/ul (4.5-11.0)
[2016-09-15 07:59] LABS: ALB/GLOB RATIO 0.9 (1.1-1.8); ALKALINE PHOSPHATASE 67 U/L (38-133); ALT/SGPT 28 U/L (7-56); AST/SGOT 22 U/L (15-39); BILIRUBIN,TOTAL 0.3 mg/dL (0.2-1.3); BLOOD UREA NITROGEN 17 mg/dL (7-21); CALCIUM 8.5 mg/dL (8.4-10.5); CARBON DIOXIDE 26 mmol/L (21-33); CHLORIDE 102 mmol/L (95-110); GFR AFRICAN-AMERICAN > 60; GLUCOSE,RANDOM 156 mg/dL (70-110); POTASSIUM 3.9 mmol/L (3.6-5.0); SODIUM 136 mmol/L (132-148); TOTAL PROTEIN 5.7 g/dL (5.8-8.3)
[2016-09-15] MEDS: Levothyroxine 50 MCG TAB PO SCH (08:08)
[2016-09-15] MEDS: Insulin Lispro 1 UNITS/0.01 ML SC SCH ×3 (08:08→16:54)
[2016-09-15 08:51] VITALS: RESP 20
[2016-09-15] MEDS: Enoxaparin 60 mg Syringe SC SCH ×2 (09:13→17:04)
[2016-09-15] MEDS: cefTRIAXone 1 gm 1 GM/100 ML BAG IVPB SCH (09:14)
--- NOTE | 2016-09-15 11:15 | PN ---
DATE: 09/15/2016 I saw her resting comfortably in bed. She is definitely better than when she came in, more strength, talking better, feeling better overall. No chest pain or shortness of breath. No abdominal pain. A little bit weak, but that is kind of her baseline. She is on a Duragesic patch, Ecotrin, Humalog, Levemir, Lovenox, morphine, Neurontin, Rocephin, IV fluids, Synthroid and vitamin D. She is here for near syncope, low blood sugars, urinary tract infection, pulmonary nodule and history of bladder cancer. PHYSICAL EXAMINATION: VITAL SIGNS: Temp 98.2, 87 pulse, 166/82 blood pressure, 20 respiratory rate, 98% O2 sat on room air. HEENT: Head is atraumatic, normocephalic. HEART: Regular rate. LUNGS: Decreased breath sounds, but clear. ABDOMEN: Soft. EXTREMITIES: No edema. She has a 136 sodium, potassium 3.9, BUN , creatinine 0.9, GFR is greater than 60, sugar is 156, calcium is 8.5, total bili is 0.3, AST is 22, ALT is 28, alk phos 67, total protein is 5.7. She has a 6.2 white count, 9.3 hemoglobin, 29.4 hematocrit with 284 platelets. Overall, she is definitely improving. She is being seen by neuro and endocrinology. She had a CAT scan of the head, which showed no CT evidence of acute intracranial hemorrhage or acute territorial infarct, hypodensity in the right caudate head and the surrounding white matter, the age indeterminate ischemic injury, white matter small vessel ischemic changes, nothing acute. She also had a CAT scan of the chest, no focal airspace opacity, 5 mm nodule in the right middle lung, follow up in 6 months, 6 mm hypodensity in the junction of the right and left hepatic lobes, punctate calcifications in both breasts. Will follow up in the outpatient with mammography. I discussed this with the patient. She understands that. She is in the process of dealing also with bladder cancer. My goal is to give her another day of antibiotics and if she is doing well, I will discharge her home tomorrow. She is improving. Hussein Johnson DO cc: [id number] TT: 09/15/2016 11:14:18 Confirmation # [id number] Dictation # [id number] en MTDD
--- NOTE | 2016-09-15 12:32 | PN ---
DATE: 09/15/2016 ROOM: 360 This is a 66-year-old female with recent uncontrolled type 2 insulin-requiring diabetes, now being fo llowed closely for metabolic management. Her glycemic levels are fluctuating, but improved, and the latest chemistries have shown a BUN of 17, sodium 136, potassium 3.9, chloride 102, CO2 26, glucose 156 and creatinine 0.9. Her glucose levels have ranged from 119-129 and 216 mg/dL. Her TSH remains 8.46 as noted. So at this time, we will continue the same basal and bolus insulin regimen to allow for dose equilibr ation and keep her on the Levemir given at the low dose of 6 units subQ at bedtime daily as given. W e will continue the Humalog given as 4 units subQ t.i.d. before meals as ordered. We will titrate in crementally as indicated to optimize metabolic control. We will obtain serial chemistries and supple ment accordingly as needed. We will follow. Carol Meléndez MD cc: [id number] TT: 09/15/2016 12:31:29 Confirmation # [id number] Dictation # [id number] en
[2016-09-15] MEDS: Insulin Detemir 100 units/ml Vial (Levemir) SC SCH (22:32)
[2016-09-16 07:05] LABS: ALB/GLOB RATIO 0.9 (1.1-1.8); ALKALINE PHOSPHATASE 67 U/L (38-133); ALT/SGPT 27 U/L (7-56); AST/SGOT 21 U/L (15-39); BILIRUBIN,TOTAL 0.4 mg/dL (0.2-1.3); BLOOD UREA NITROGEN 12 mg/dL (7-21); CALCIUM 8.8 mg/dL (8.4-10.5); CARBON DIOXIDE 27 mmol/L (21-33); CHLORIDE 99 mmol/L (98-107); GFR AFRICAN-AMERICAN > 60; GLUCOSE,RANDOM 216 mg/dL (70-110); POTASSIUM 3.6 mmol/L (3.6-5.0); SODIUM 133 mmol/L (132-148); TOTAL PROTEIN 5.5 g/dL (5.8-8.3)
[2016-09-16 07:13] LABS: HEMATOCRIT 28.3 % (36.0-48.0); MEAN CELL VOLUME 82.7 fL (80.0-105.0); MEAN CORPUSCULAR HEMOGLOBIN 26.6 pg (25.0-35.0); MEAN CORPUSCULAR HGB CONC 32.2 g/dl (31.0-37.0); MEAN PLATELET VOLUME 8.4 fl (7.0-11.0); RED CELL DISTRIBUTION WIDTH 17.9 % (11.5-14.5); WHITE BLOOD COUNT 6.4 10^3/ul (4.5-11.0)
[2016-09-16] MEDS: Insulin Lispro 1 UNITS/0.01 ML SC SCH (08:50)
[2016-09-16] MEDS: Levothyroxine 50 MCG TAB PO SCH (08:51)
[2016-09-16] MEDS: Insulin Lispro (humaLOG) LOW Coverage SC SCH (08:56)
[2016-09-16] MEDS: Enoxaparin 60 mg Syringe SC SCH (09:33)
[2016-09-16] MEDS: cefTRIAXone 1 gm 1 GM/100 ML BAG IVPB SCH (09:33)
[2016-09-16 09:59] VITALS: BP 146/75; PULSE 96; TEMP 98.2; O2SAT 96
--- NOTE | 2016-09-16 11:38 | DS ---
I saw the patient. She ambulated pretty well in the room; went to the bathroom. She is with her bay nnamdi. The plan is to be discharged today. I think she would be better at home. Follow up at the [facility] doctors for her bladder cancer. I think the UTI is much improved. MEDICATIONS: She is going to go home on Cipro 500 one a day for 1 day, back on her levothyroxine, he r vitamin D, her Zofran, her fentanyl patch, Ecotrin, Humulin insulin 4 units subQ a.c. and Levemir i nsulin 6 units at bedtime, go back on her gabapentin, pantoprazole, pravastatin, and I gave her 20 ox ycodone until she can see her doctor that takes care of her for the pain meds which is at [facility]. PHYSICAL EXAMINATION: VITAL SIGNS: She has 98.2 temp, 96 pulse, 146/75 blood pressure, 20 respiratory rate, 96% O2 sat on room air. HEENT: Head is atraumatic, normocephalic. HEART: Regular rate. LUNGS: Decreased breath sounds but clear. ABDOMEN: Soft, obese. EXTREMITIES: No edema. She is walking well to the bathroom. LABORATORY DATA: She has a 6.4 white count, 9.1 hemoglobin, 28.3 hematocrit with 345 platelets. Sod ium 133, potassium 3.6, BUN 12, creatinine 0.7, GFR is greater than 60, sugar is 216, calcium is 8.8. Total bili is 0.4, AST is 21, ALT is 27, alkaline phosphatase 67, total protein is 5.5. She was here for a few things: Urinary tract infection, near syncope, low blood sugars, pulmonary no dule and bladder cancer. This was discussed with the daughter and nursing. I went over the medicati ons, and she is discharged. She should come to the office this week. Hussein Johnson DO cc: [id number] TT: 09/16/2016 11:38:04 vt
[2016-09-16] MEDS ORDERED: Insulin Detemir 100 units/ml Vial (Levemir) SC SCH (22:00)
== END 2016-09-16 14:10 | disposition home or self-care (01) | DRG 638 ==
LOC: ED 11:38 → ERH 16:09 → 3RNO 18:58
PROVIDERS: ADMIT Family Medicine; ATTEND Family Medicine
DX: E11.649 Type 2 diabetes mellitus with hypoglycemia without coma (principal); N39.0 Urinary tract infection, site not specified; G92 Toxic encephalopathy; C79.51 Secondary malignant neoplasm of bone; I11.9 Hypertensive heart disease without heart failure; C67.9 Malignant neoplasm of bladder, unspecified; G89.3 Neoplasm related pain (acute) (chronic); E78.5 Hyperlipidemia, unspecified; E11.65 Type 2 diabetes mellitus with hyperglycemia; M19.90 Unspecified osteoarthritis, unspecified site; E03.9 Hypothyroidism, unspecified; R91.1 Solitary pulmonary nodule; Z79.4 Long term (current) use of insulin; Z79.82 Long term (current) use of aspirin; Z83.3 Family history of diabetes mellitus; Z82.49 Family history of ischemic heart disease and other diseases of the circulatory system